=== PATIENT | male | born 1935 | race Caucasian/White ===

== ENCOUNTER 2017-05-02 22:45 | Observation (INO) | payer OTHER ==
[~2017-05-02] VITALS: Ht 167.6 cm; Wt 86.6 kg
[~2017-05-02 22:45] MED LIST: ASPIRIN EC325 M2 PO; ATIVAN1 M1 PO; ATORVASTATIN CA20 M1 PO; COLACE100 M1 PO; DILAUDID2 M1 PO; FISH OIL 1,2001 EACH PO; LOSARTAN POTAS100 M1 PO; MIRALAX17 G1 PO; MS CONTIN15 M3 PO; RANITIDINE HCL75 MG PO; ST. JOSEPH ASPI81 M1 PO; VERAPAMIL ER240 M1 PO; VITAMIN E1000 UNI1 PO
--- NOTE | 2017-05-02 23:04 | ED GI/GU/ABDOMINAL COMPLAINT ---
History of Present Illness General Chief Complaint: General Adult Stated Complaint: PT IS HAVING UPPER ABDOMINAL PAIN Source: patient, family, old records Exam Limitations: no limitations Vital Signs & Intake/Output Vital Signs & Intake/Output Vital Signs Date Time Temp Pulse Resp B/P B/P Pulse O2 O2 Flow FiO2 Mean Ox Delivery Rate 05/03 0059 96 Room Air 05/03 0036 99.2 74 20 159/78 98 Room Air 05/02 2313 98.8 79 18 164/84 97 Room Air ED Intake and Output 05/03 0000 05/02 1200 Intake Total Output Total Balance Patient 191 lb Weight Weight Reported by Patient Measurement Method Allergies Coded Allergies: acetaminophen (From TYLENOL) (IMPACTS LIVER 04/24/17) Reconcile Medications Aspirin (Ecotrin*) 325 MG TABLET.DR 1 TAB PO BID ANTICOAGULATION Atorvastatin Calcium 20 MG TABLET 1 TAB PO DAILY CHOLESTEROL (Reported) Docusate Sodium (Colace) 100 MG CAPSULE 1 CAP PO BID CONSITPATION DISCONTINUE USE IF YOU DEVELOP LOOSE STOOL OR DIARRHEA Fish Oil/Dha/Epa (Fish Oil 1,200 MG Fish Oil) 1,200 MG-144 MG-216 MG CAPSULE 1 TAB PO D SUPPLEMENT (Reported) Hydromorphone HCl (Dilaudid) 2 MG TABLET 1-2 TAB PO Q4-6 PRN PRN PAIN LORazepam (Ativan) 1 MG TAB 1 TAB PO BID PRN ANXIETY (Reported) Losartan Potassium 100 MG TABLET 1 TAB PO DAILY BP (Reported) Morphine Sulfate (Ms Contin) 15 MG TABLET.ER 1 TAB PO BID PRN PAIN Polyethylene Glycol 3350 (Miralax) 17 GRAM POWD.PACK 1 PAC PO DAILY CONSTIPATION dissolve in water, DISCONTINUE USE IF YOU DEVELOP LOOSE STOOL OR DIARRHEA Ranitidine HCl 75 MG TABLET 1 TAB PO DAILY REFLUX (Reported) Verapamil HCl (Verapamil ER) 240 MG TABLET.ER 1 TAB PO DAILY BP (Reported) Vitamin E Mixed (Vitamin E) 1,000 UNIT CAPSULE 1 TAB PO DAILY SUPPLEMENT ( Reported) Triage Nurses Notes Reviewed? yes HPI: Patient was awoken approximately 2 hours ago with a burning sensation in his epigastric area. There is no radiation. There are no aggravating or mitigating factors. He rates as moderate on the pain scale. Patient had hip surgery last week and saw his petroleum analyst, Dr. Soler, prior to the surgery and was told that everything was okay. Patient denies any shortness of breath. Patient has not had much of an appetite since the surgery but tonight had a craving for a chili dog so he ate 2 chili dogs. Patient then went to bed and was awoken with the above symptoms. Past History Travel History Traveled to [place] past 21 day No Medical History Any Pertinent Medical History? 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 No Review of Systems Review of Systems Constitutional: Reports: no symptoms. EENTM: Reports: no symptoms. Respiratory: Reports: no symptoms. Cardiovascular: Reports: no symptoms. GI: Reports: see HPI, abdominal pain. Genitourinary: Reports: no symptoms. Musculoskeletal: Reports: no symptoms. Skin: Reports: no symptoms. Neurological/Psychological: Reports: no symptoms. Hematologic/Endocrine: Reports: no symptoms. Immunologic/Allergic: Reports: no symptoms. All Other Systems: Reviewed and Negative Physical Exam Physical Exam General Appearance: well developed/nourished, alert, awake, anxious, mild distress Head: atraumatic, normal appearance Eyes: Bilateral: PERRL, EOMI. Ears, Nose, Throat, Mouth: hearing grossly normal, moist mucous membrane Neck: normal inspection, supple, full range of motion Respiratory: normal breath sounds, chest non-tender, no respiratory distress, lungs clear Cardiovascular: regular rate/rhythm, normal peripheral pulses Gastrointestinal: normal bowel sounds, soft, non-tender, no organomegaly Back: normal inspection, normal range of motion Extremities: normal range of motion Neurologic/Psych: no motor/sensory deficits, awake, alert, oriented x 3, normal mood/affect Skin: intact, normal color, warm/dry Core Measures ACS in differential dx? No Sepsis Present: No Sepsis Focused Exam Completed? No Progress Differential Diagnosis: AAA, AMI, biliary colic, colon cancer, cholecystitis, diverticulitis, gastritis, hepatitis, ischemic bowel, inflamm bowel dis, pancreatitis, peptic ulcer, PUD/GERD Plan of Care: Orders Procedure Date/time Status TROPONIN LEVEL 05/03 0154 Active EKG 05/03 0154 Active Telemetry/Press Tender Star Signal 05/02 2302 Active TROPONIN LEVEL 05/02 2302 Complete LIPASE 05/02 2302 Complete COMPREHENSIVE METABOLIC PANEL 05/02 2302 Complete CBC WITHOUT DIFFERENTIAL 05/02 2302 Complete AMYLASE 05/02 2302 Complete EKG 05/02 2249 Active Laboratory Tests 05/03/17 0220: Troponin I Pending 05/02/17 2325: Anion Gap 13, Estimated GFR > 60, BUN/Creatinine Ratio 16.4, Glucose 131 H, Calcium 9.2, Total Bilirubin 1.4 H, AST 52, ALT 56, Alkaline Phosphatase 69, Troponin I 0.04, Total Protein 6.5, Albumin 3.4 L, Globulin 3.1, Albumin/ Globulin Ratio 1.1, Amylase 50, Lipase 102, CBC w Diff NO MAN DIFF REQ, RBC 3.45 L, MCV 99.5 H, MCH 33.5 H, RDW 12.6, MPV 7.7, Gran % 74.2, Lymphocytes % 15.2 L, Monocytes % 9.7 H, Eosinophils % 0.5, Basophils % 0.4, Absolute Granulocytes 4.1, Absolute Lymphocytes 0.8 L, Absolute Monocytes 0.5, Absolute Eosinophils 0, Absolute Basophils 0, PUBS MCHC 33.6 Diagnostic Imaging: Viewed by Me: Radiology Read. Discussed w/RAD: Radiology Read. Radiology Impression: PATIENT: MONICA SHRESTHA PRESENT AGE: 81 PATIENT ACCOUNT NO: [id number] : 35 LOCATION: [facility] ORDERING PHYSICIAN: Beulah Davies MD SERVICE DATE: 05/03/17 EXAM TYPE: CAT - CT ABD & PELVIS W IV CONTRAST EXAMINATION: CT ABDOMEN AND PELVIS WITH CONTRAST CLINICAL INFORMATION: Right upper quadrant pain. COMPARISON: None available. TECHNIQUE: Multidetector volumetric imaging was performed of the abdomen and pelvis following IV administration of 95 mL of Optiray 320 intravenous contrast. Sagittal and coronal reformatted images were obtained on the technologist's workstation. FINDINGS: The lung bases are clear. The liver, spleen, adrenal glands, and pancreas are normal. The gallbladder is significantly distended and there are multiple gallstones, the largest measuring 0.8 cm in size. The kidneys exhibit symmetric nephrograms without evidence of hydronephrosis or nephrolithiasis. Small exophytic right renal cyst. Scattered colonic diverticulosis without acute diverticulitis. The large and small bowel are normal in caliber without evidence of mechanical obstruction. No focal inflammatory changes adjacent to the large or the small bowel. The appendix is normal. There is no free air and there is no intra-abdominal free fluid. No mesenteric or retroperitoneal adenopathy. Infrarenal abdominal aortic ectasia. The pelvic viscera are normal. No pelvic adenopathy. No free fluid within the pelvis. There are no acute osseous abnormalities. Degenerative changes throughout the thoracolumbar spine. Grade 1 degenerative anterolisthesis of L4 on L5. Small fat-containing inguinal hernias bilaterally. Bilateral total hip arthroplasties. IMPRESSION: - Cholelithiasis and significant gallbladder distention. No pericholecystic inflammatory changes. - Scattered colonic diverticulosis without acute diverticulitis. DICTATED BY: Dale Valencia MD DATE/TIME DICTATED:05/03/17209 PIPELINE INTEGRITY ENGINEER:DAYSI DATE/TIME TRANSCRIBED:05/03/17209 CONFIDENTIAL, DO NOT COPY WITHOUT APPROPRIATE AUTHORIZATION. <Electronically signed in Other Vendor System> SIGNED BY: Dale Valencia MD 05/03/17218 CXR Impression: PATIENT: MONICA SHRESTHA PRESENT AGE: 81 PATIENT ACCOUNT NO: [id number] : 35 LOCATION: [facility] ORDERING PHYSICIAN: Beulah Davies MD SERVICE DATE: 05/02/17 EXAM TYPE: RAD - XRY- PORTABLE CHEST XRAY EXAMINATION: XR PORTABLE CHEST CLINICAL INFORMATION: Chest pain COMPARISON: Chest x-ray 04/20/2017 TECHNIQUE: Portable frontal view of the chest was obtained. FINDINGS: Lungs are clear. No pulmonary vascular congestion. There is no pleural effusion. The heart size is normal. The cardiac and mediastinal contours are normal. There are calcifications of the thoracic aorta. There are multilevel degenerative changes of dorsal spine. IMPRESSION: Unremarkable examination. DICTATED BY: Jaime Boggs MD DATE/TIME DICTATED:2326 PIPELINE INTEGRITY ENGINEER:SERRANO DATE/TIME TRANSCRIBED:05/02/172326 CONFIDENTIAL, DO NOT COPY WITHOUT APPROPRIATE AUTHORIZATION. <Electronically signed in Other Vendor System> SIGNED BY: Jaime Boggs MD 05/02/172330 Initial ED EKG: NSR, nonspecific ST T wave chg Prior EKG: unchanged Rhythm Strip: normal sinus rhythm Comments: GI COCTAIL CHANGED THE PAIN FROM BURNING TO CRAMPY AND NOW THE PAIN IS IN THE RUQ. NO RELIEF AFTER IF MORPHONE PAIN DECREASED TO 3 OUT OF [address] AND LAB RESULTS DISCUSSED WITH PT. QUESTIONS HAVE BEEN ANSWERED. SURGERY PAGED. Departure Departure Disposition: STILL A PATIENT Condition: Stable Clinical Impression Primary Impression: Cholelithiasis Referrals: Burkett ,Agapito Castro (PCP/Family) Departure Forms: Customer Survey General Discharge Information Observation Note Spoke With: Alexa ENCINAS,Boogie Lucas Physician Advisor Notified: AFSANEH ENCINAS,BEULAH Mcfarlane Place Patient In: Non-ED OBS Care Area Rationale for Observation: My rational for observation is as follows [IV FLUIDS, NPO, PAIN CONTROL, LAP TITO].
--- NOTE | 2017-05-02 23:31 | RADIOLOGY REPORT ---
EXAMINATION: XR PORTABLE CHEST CLINICAL INFORMATION: Chest pain COMPARISON: Chest x-ray 04/20/2017 TECHNIQUE: Portable frontal view of the chest was obtained. FINDINGS: Lungs are clear. No pulmonary vascular congestion. There is no pleural effusion. The heart size is normal. The cardiac and mediastinal contours are normal. There are calcifications of the thoracic aorta. There are multilevel degenerative changes of dorsal spine. IMPRESSION: Unremarkable examination.
[2017-05-02 23:42] LABS: ABSOLUTE BASOPHIL COUNT 0 /CUMM (0.0-0.2); ABSOLUTE EOSINOPHIL COUNT 0 /CUMM (0.0-0.7); ABSOLUTE GRANULOCYTE CT 4.1 /CUMM (1.4-6.5); ABSOLUTE LYMPH COUNT 0.8 /CUMM (1.2-3.4); ABSOLUTE MONOCYTE COUNT 0.5 /CUMM (0.10-0.60); BASOPHIL % 0.4 % (0.0-2.0); EOSINOPHIL % 0.5 % (0-5); GRANULOCYTE % 74.2 % (42.2-75.2); HEMATOCRIT 34.3 % (42-52); MEAN CORPUSCULAR HGB 33.5 PG (27.0-31.0); MEAN CORPUSCULAR HGB CONC 33.6 G/DL (33.0-37.0); MEAN CORPUSCULAR VOLUME 99.5 FL (80.0-94.0); MEAN PLATELET VOLUME 7.7 FL (7.4-10.4); RBC DISTRIBUTION WIDTH 12.6 % (11.5-14.5); RED BLOOD CELL CT 3.45 /CUMM (4.70-6.10); WHITE BLOOD CELL COUNT 5.5 /CUMM (4.8-10.8)
[2017-05-02 23:49] LABS: PLATELET COUNT 238 /CUMM (130-400)
--- NOTE | 2017-05-03 02:19 | CT SCAN REPORT ---
EXAMINATION: CT ABDOMEN AND PELVIS WITH CONTRAST CLINICAL INFORMATION: Right upper quadrant pain. COMPARISON: None available. TECHNIQUE: Multidetector volumetric imaging was performed of the abdomen and pelvis following IV administration of 95 mL of Optiray 320 intravenous contrast. Sagittal and coronal reformatted images were obtained on the technologist's workstation. FINDINGS: The lung bases are clear. The liver, spleen, adrenal glands, and pancreas are normal. The gallbladder is significantly distended and there are multiple gallstones, the largest measuring 0.8 cm in size. The kidneys exhibit symmetric nephrograms without evidence of hydronephrosis or nephrolithiasis. Small exophytic right renal cyst. Scattered colonic diverticulosis without acute diverticulitis. The large and small bowel are normal in caliber without evidence of mechanical obstruction. No focal inflammatory changes adjacent to the large or the small bowel. The appendix is normal. There is no free air and there is no intra-abdominal free fluid. No mesenteric or retroperitoneal adenopathy. Infrarenal abdominal aortic ectasia. The pelvic viscera are normal. No pelvic adenopathy. No free fluid within the pelvis. There are no acute osseous abnormalities. Degenerative changes throughout the thoracolumbar spine. Grade 1 degenerative anterolisthesis of L4 on L5. Small fat-containing inguinal hernias bilaterally. Bilateral total hip arthroplasties. IMPRESSION: - Cholelithiasis and significant gallbladder distention. No pericholecystic inflammatory changes. - Scattered colonic diverticulosis without acute diverticulitis.
--- NOTE | 2017-05-03 03:14 | History & Physical Pre-Op ---
General Information and HPI MD Statement: I have seen and personally examined MONICA SHRESTHA and documented this H&P. The patient is a 81 year old M who presented with a patient stated chief complaint of ABDOMINAL PAIN. Source of Information: patient Exam Limitations: no limitations History of Present Illness: 81-year-old male with complaints of epigastric and right upper quadrant abdominal pain after eating 2 chili dogs this evening. Pain started a few hours later, it was 8 out of 10, nonradiating, burning epigastric sensation. It was severe enough to bring patient to the emergency department. He received pain medication here and then noted that the pain was localized to the right upper quadrant. He states he has a history of gallstones, previously passed a gallstone but states he was never recommended to have surgery. He has not had any significant right upper quadrant abdominal pain over the last several months but does state that his had loss of appetite without any significant weight loss. He has GERD as well. There is no radiating pain to the back, no nausea no vomiting no fever. Coincidentally, he is one week status post right total hip arthroplasty anterior approach and has been doing well postoperatively, recovering at home with home therapy and is on aspirin 325 mg by mouth twice a day for DVT prophylaxis. He has some swelling in his right leg and intermittent pain that is improving but otherwise he is recovering well. He saw his carton filler 2 weeks ago for cardiac clearance as he has a history of coronary artery disease with [place] [address] scan of the abdomen and pelvis shows enlarged gallbladder with gallstones and surgery was consulted for further management Allergies/Medications Allergies: Coded Allergies: acetaminophen (From TYLENOL) (IMPACTS LIVER 04/24/17) Home Med list Aspirin (Ecotrin*) 325 MG TABLET.DR 1 TAB PO BID ANTICOAGULATION Atorvastatin Calcium 20 MG TABLET 1 TAB PO DAILY CHOLESTEROL (Reported) Docusate Sodium (Colace) 100 MG CAPSULE 1 CAP PO BID CONSITPATION DISCONTINUE USE IF YOU DEVELOP LOOSE STOOL OR DIARRHEA Fish Oil/Dha/Epa (Fish Oil 1,200 MG Fish Oil) 1,200 MG-144 MG-216 MG CAPSULE 1 TAB PO D SUPPLEMENT (Reported) Hydromorphone HCl (Dilaudid) 2 MG TABLET 1-2 TAB PO Q4-6 PRN PRN PAIN LORazepam (Ativan) 1 MG TAB 1 TAB PO BID PRN ANXIETY (Reported) Losartan Potassium 100 MG TABLET 1 TAB PO DAILY BP (Reported) Morphine Sulfate (Ms Contin) 15 MG TABLET.ER 1 TAB PO BID PRN PAIN Polyethylene Glycol 3350 (Miralax) 17 GRAM POWD.PACK 1 PAC PO DAILY CONSTIPATION dissolve in water, DISCONTINUE USE IF YOU DEVELOP LOOSE STOOL OR DIARRHEA Ranitidine HCl 75 MG TABLET 1 TAB PO DAILY REFLUX (Reported) Verapamil HCl (Verapamil ER) 240 MG TABLET.ER 1 TAB PO DAILY BP (Reported) Vitamin E Mixed (Vitamin E) 1,000 UNIT CAPSULE 1 TAB PO DAILY SUPPLEMENT ( Reported) Past History Medical History EENT: cataracts Cardiovascular: hypertension, hyperlipidemia, [place] (TEN YEARS) HEART DIS Gastrointestinal: GERD Musculoskeletal: osteoarthritis Psychiatric: anxiety Influenza Vaccine: 01/20/17 Surgical History Pertinent Surgical History: non-contributory Past Family/Social History Psychosocial History ETOH Use: denies use (2-3 drinks per day), heavy use Illicit Drug Use: denies illicit drug use Functional Ability ADLs Independent: dressing, eating, toileting, bathing. Review of Systems Review of Systems Constitutional: Reports: no symptoms. EENTM: Reports: no symptoms. Cardiovascular: Reports: no symptoms. Respiratory: Reports: no symptoms. GI: Reports: see HPI. Genitourinary: Reports: no symptoms. Musculoskeletal: Reports: see HPI. Skin: Reports: no symptoms. Neurological/Psychological: Reports: no symptoms. Hematologic/Endocrine: Reports: no symptoms. Exam & Diagnostic Data Last 24 Hrs of Vital Signs/I&O Vital Signs Date Time Temp Pulse Resp B/P B/P Pulse O2 O2 Flow FiO2 Mean Ox Delivery Rate 05/03 0255 97.8 72 18 138/86 98 Room Air 05/03 0059 96 Room Air 05/03 0036 99.2 74 20 159/78 98 Room Air 05/02 2313 98.8 79 18 164/84 97 Room Air Intake & Output 05/03 0800 05/03 0000 05/02 1600 Intake Total 50 Output Total 125 Balance -75 Intake, Oral 50 Output, Urine 125 Patient 191 lb Weight Weight Reported by Patient Measurement Method Physical Exam: Well-developed well-nourished no apparent distress. HEENT: Atraumatic, extraocular motion intact Neck: Supple, no lymphadenopathy Heart: Regular rate and rhythm Respiratory: No respiratory distress clear to auscultation bilateral. Abdomen: Mild tenderness in the right upper quadrant, negative Enrique sign. Minimal abdominal distention. No lower abdominal tenderness. Extremities: RIGHT lower extremity hip dressing in place, Dressing clean dry and intact Incision without erythema Mild thigh swelling No signs of infection. No shortening or rotation Hip range of motion is limited and without unexpected pain Neurovascularly intact distally Bilateral calves are supple, nontender. +1 edema right lower extremity, no calf pain, no edema left lower extremity Neuro: Alert and oriented x3 Psych: Mood affect normal, normal memory normal judgment. Skin: Warm and dry, no rash on exposed skin Last 24 Hrs of Labs/Jordan: Laboratory Tests 05/03/17 0220: Troponin I 0.03 05/02/17 2325: Anion Gap 13, Estimated GFR > 60, BUN/Creatinine Ratio 16.4, Glucose 131 H, Calcium 9.2, Total Bilirubin 1.4 H, AST 52, ALT 56, Alkaline Phosphatase 69, Troponin I 0.04, Total Protein 6.5, Albumin 3.4 L, Globulin 3.1, Albumin/ Globulin Ratio 1.1, Amylase 50, Lipase 102, CBC w Diff NO MAN DIFF REQ, RBC 3.45 L, MCV 99.5 H, MCH 33.5 H, RDW 12.6, MPV 7.7, Gran % 74.2, Lymphocytes % 15.2 L, Monocytes % 9.7 H, Eosinophils % 0.5, Basophils % 0.4, Absolute Granulocytes 4.1, Absolute Lymphocytes 0.8 L, Absolute Monocytes 0.5, Absolute Eosinophils 0, Absolute Basophils 0, PUBS MCHC 33.6 Diagnostic Data EKG Results 80 BPM, NSR, Q WAVE INF, NS T WAVE ABNORMALITY INF, NO CHANGE FROM PREVIOUS Other Results PATIENT: MONICA SHRESTHA PRESENT AGE: 81 PATIENT ACCOUNT NO: [id number] : 35 LOCATION: [facility] ORDERING PHYSICIAN: Alvarez Davies MD SERVICE DATE: 05/03/17 EXAM TYPE: CAT - CT ABD & PELVIS W IV CONTRAST EXAMINATION: CT ABDOMEN AND PELVIS WITH CONTRAST CLINICAL INFORMATION: Right upper quadrant pain. COMPARISON: None available. TECHNIQUE: Multidetector volumetric imaging was performed of the abdomen and pelvis following IV administration of 95 mL of Optiray 320 intravenous contrast. Sagittal and coronal reformatted images were obtained on the technologist's workstation. FINDINGS: The lung bases are clear. The liver, spleen, adrenal glands, and pancreas are normal. The gallbladder is significantly distended and there are multiple gallstones, the largest measuring 0.8 cm in size. The kidneys exhibit symmetric nephrograms without evidence of hydronephrosis or nephrolithiasis. Small exophytic right renal cyst. Scattered colonic diverticulosis without acute diverticulitis. The large and small bowel are normal in caliber without evidence of mechanical obstruction. No focal inflammatory changes adjacent to the large or the small bowel. The appendix is normal. There is no free air and there is no intra-abdominal free fluid. No mesenteric or retroperitoneal adenopathy. Infrarenal abdominal aortic ectasia. The pelvic viscera are normal. No pelvic adenopathy. No free fluid within the pelvis. There are no acute osseous abnormalities. Degenerative changes throughout the thoracolumbar spine. Grade 1 degenerative anterolisthesis of L4 on L5. Small fat-containing inguinal hernias bilaterally. Bilateral total hip arthroplasties. IMPRESSION: - Cholelithiasis and significant gallbladder distention. No pericholecystic inflammatory changes. - Scattered colonic diverticulosis without acute diverticulitis. DICTATED BY: Dale Valencia MD DATE/TIME DICTATED:05/03/17209 MOBILITY ENGINEER:DAYSI DATE/TIME TRANSCRIBED:05/03/17209 CONFIDENTIAL, DO NOT COPY WITHOUT APPROPRIATE AUTHORIZATION. <Electronically signed in Other Vendor System> SIGNED BY: Dale Valencia MD 05/03/17218 Assessment/Plan Assessment/Plan: 81-year-old male with symptomatic gallstones and elevated bilirubin 1 week postop after right total hip replacement We will need to hold his anticoagulation in anticipation for surgery in the very near future. We will repeat his LFTs in the morning monitoring for elevated bilirubin, if he continues to rise, he will need an ERCP. If not, he will likely need a semiurgent laparoscopic cholecystectomy either later today or tomorrow. Nothing by mouth, IV fluids, pain medication as needed, we will place him in [address] Liu As Ranked By This Provider Problem List: 1. Acute cholecystitis 2. Hyperbilirubinemia
--- NOTE | 2017-05-03 03:14 | Admission Core Measures ---
Acute Coronary Syndrome (CM) ACS Core Measures Acute Coronary Syndrome Diagnosis No Congestive Heart Failure (NEW) CHF Core Measures Congestive Heart Failure Diagnosis No Cerebrovascular Accident (NEW) CVA Core Measures CVA/TIA Diagnosis No Venous Thromboembolism VTE Core Caio (View Protocol) VTE Risk Factors Age>40 No Mechanical VTE Prophylaxis d/t N/A MechProphylax Ordered No VTE Pharm Prophylaxis d/t Surgical Contraindication Problem List As ranked by this Provider includes Assessment & Plan 1. Acute cholecystitis 2. Hyperbilirubinemia HOME MEDS Home Med List Aspirin (Ecotrin*) 325 MG TABLET.DR 1 TAB PO BID ANTICOAGULATION Atorvastatin Calcium 20 MG TABLET 1 TAB PO DAILY CHOLESTEROL (Reported) Docusate Sodium (Colace) 100 MG CAPSULE 1 CAP PO BID CONSITPATION Fish Oil/Dha/Epa (Fish Oil 1,200 MG Fish Oil) 1,200 MG-144 MG-216 MG CAPSULE 1 TAB PO D SUPPLEMENT (Reported) Hydromorphone HCl (Dilaudid) 2 MG TABLET 1-2 TAB PO Q4-6 PRN PRN PAIN LORazepam (Ativan) 1 MG TAB 1 TAB PO BID PRN ANXIETY (Reported) Losartan Potassium 100 MG TABLET 1 TAB PO DAILY BP (Reported) Morphine Sulfate (Ms Contin) 15 MG TABLET.ER 1 TAB PO BID PRN PAIN Polyethylene Glycol 3350 (Miralax) 17 GRAM POWD.PACK 1 PAC PO DAILY CONSTIPATION Ranitidine HCl 75 MG TABLET 1 TAB PO DAILY REFLUX (Reported) Verapamil HCl (Verapamil ER) 240 MG TABLET.ER 1 TAB PO DAILY BP (Reported) Vitamin E Mixed (Vitamin E) 1,000 UNIT CAPSULE 1 TAB PO DAILY SUPPLEMENT ( Reported) Discontinued Medications Aspirin (Conger Aspirin) 81 MG TABLET. 1 TAB PO DAILY HEARTHEALTH ( Reported) Discontinued reason: Changed Dose
[2017-05-03 07:54] VITALS: BP 150/76
[2017-05-03 08:22] LABS: PT 13.9 SEC (9.4-12.5)
--- NOTE | 2017-05-03 08:51 | PN- Student ---
Subjective Subjective: No acute events overnight. Pt reports constant non-radiating 4/10 pain in RUQ. Reports he had nausea after receiving pain medication, no vomiting. Denies fevers, chills, dysuria, SOB or CP. requesting a walker so he can get up and ambulate. Objective Objective: General: awake, alert, oriented. In no acute distress. Cardiac: regular rate and rhythm. Normal S1 S2 Respiratory: Non-labored breathing. Lungs CTA b/l. Good inspiratory effort Abdomen: Soft, obese, non-distended. Normoactive bowel sounds. Negative dill sign. Min tenderness to deep palpation in RUQ, otherwise abdomen non-tender to palpation. Extr: RLE: dressing over incision is c/d/i. Ecchymosis is noted along lateral thigh. Mild edema noted along RLE including right foot. 2+ DP pulse palpated. Extremity is warm, dry and non-tender. Motor and sensation are grossly intact. Pt complains of minimal calf tenderness to palpation. No erythema or palpable cords. LLE: Calf non-tender. 2+ DP pulse palpated. Motor and sensation grossly intact. Results Results: Laboratory Tests 05/03/17 0720: Total Bilirubin Pending, Direct Bilirubin Pending, AST Pending, ALT Pending, Alkaline Phosphatase Pending, Total Protein Pending, Albumin Pending, PT 13.9 H , INR 1.33 H 05/03/17 0220: Troponin I 0.03 05/02/17 2325: Anion Gap 13, Estimated GFR > 60, BUN/Creatinine Ratio 16.4, Glucose 131 H, Calcium 9.2, Total Bilirubin 1.4 H, AST 52, ALT 56, Alkaline Phosphatase 69, Troponin I 0.04, Total Protein 6.5, Albumin 3.4 L, Globulin 3.1, Albumin/ Globulin Ratio 1.1, Amylase 50, Lipase 102, CBC w Diff NO MAN DIFF REQ, RBC 3.45 L, MCV 99.5 H, MCH 33.5 H, RDW 12.6, MPV 7.7, Gran % 74.2, Lymphocytes % 15.2 L, Monocytes % 9.7 H, Eosinophils % 0.5, Basophils % 0.4, Absolute Granulocytes 4.1, Absolute Lymphocytes 0.8 L, Absolute Monocytes 0.5, Absolute Eosinophils 0, Absolute Basophils 0, PUBS MCHC 33.6 Vital Signs Date Time Temp Pulse Resp B/P B/P Pulse O2 O2 Flow FiO2 Mean Ox Delivery Rate 05/03 0754 98.5 78 18 150/76 95 05/03 0255 97.8 72 18 138/86 98 Room Air 05/03 0059 96 Room Air 05/03 0036 99.2 74 20 159/78 98 Room Air 05/02 2313 98.8 79 18 164/84 97 Room Air Intake & Output 05/03 1600 05/03 0800 05/03 0000 Intake Total 50 Output Total 125 Balance -75 Intake, Oral 50 Output, Urine 125 Patient 191 lb Weight Weight Reported by Patient Measurement Method Assessment/Plan Assessment: 81-year-old male with symptomatic gallstones and elevated bilirubin 1 week postop after right total hip replacement. Pt is currently hemo-dynamically stable with 4/10 RUQ pain. Plan: awaiting repeat LFTs this am hold asa NPO IV pain medications home meds with a sip of water will d/w preceptor Melva CENTENO
[2017-05-03 14:57] VITALS: BP 118/60
--- NOTE | 2017-05-03 16:29 | History & Physical Pre-Op ---
See Addendum General Information and HPI Source of Information: patient Exam Limitations: no limitations History of Present Illness: CC: abdominal pain HPI: 81-year-old xsmoker nondiabetic with heart history cleared recently by cardiology for a hip replacement a week ago. Actually he's had a poor appetite for a few weeks but it was better yesterday and he had to chili dogs followed by constant right upper quadrant pain only relieved with analgesics doesn't radiate. He knows he has gallstones once he had imaging several years ago for elevated liver function tests he was told he had gallstones but didn't really ever bother him until yesterday. This pain is not worse with activity no n/v diarrhea no fevers no particular darkening of urine (ie iced tea) or lightening / loose stools (mast), he's not sure his mother may have had a gallbladder problem too. Otherwise no changes bowel habits, weight or appetite. I've reviewed the [facility]. No history of GERD, PUD, bleeding problems, or issues with anesthesia. Not on Coumadin since recent hip surgery only aspirin. Family history positive for heart disease or no diabetes past surgical history no prior abdominal surgery. Allergies/Medications Allergies: Coded Allergies: acetaminophen (From TYLENOL) (IMPACTS LIVER 04/24/17) Home Med list Aspirin (Ecotrin*) 325 MG TABLET.DR 1 TAB PO BID ANTICOAGULATION Atorvastatin Calcium 20 MG TABLET 1 TAB PO DAILY CHOLESTEROL (Reported) Docusate Sodium (Colace) 100 MG CAPSULE 1 CAP PO BID CONSITPATION DISCONTINUE USE IF YOU DEVELOP LOOSE STOOL OR DIARRHEA Fish Oil/Dha/Epa (Fish Oil 1,200 MG Fish Oil) 1,200 MG-144 MG-216 MG CAPSULE 1 TAB PO D SUPPLEMENT (Reported) Hydromorphone HCl (Dilaudid) 2 MG TABLET 1-2 TAB PO Q4-6 PRN PRN PAIN LORazepam (Ativan) 1 MG TAB 1 TAB PO BID PRN ANXIETY (Reported) Losartan Potassium 100 MG TABLET 1 TAB PO DAILY BP (Reported) Morphine Sulfate (Ms Contin) 15 MG TABLET.ER 1 TAB PO BID PRN PAIN Polyethylene Glycol 3350 (Miralax) 17 GRAM POWD.PACK 1 PAC PO DAILY CONSTIPATION dissolve in water, DISCONTINUE USE IF YOU DEVELOP LOOSE STOOL OR DIARRHEA Ranitidine HCl 75 MG TABLET 1 TAB PO DAILY REFLUX (Reported) Verapamil HCl (Verapamil ER) 240 MG TABLET.ER 1 TAB PO DAILY BP (Reported) Vitamin E Mixed (Vitamin E) 1,000 UNIT CAPSULE 1 TAB PO DAILY SUPPLEMENT ( Reported) Past History Medical History Blood Transfusion Hx: No Neurological: NONE EENT: cataracts Cardiovascular: hypertension, hyperlipidemia, CT (TEN YEARS) HEART DIS Respiratory: NONE Gastrointestinal: GERD Hepatic: cholelithiasis, ENLARGED LIVER Renal: NONE Musculoskeletal: fracture, osteoarthritis Psychiatric: anxiety Endocrine: NONE Blood Disorders: NONE Cancer(s): NONE REGULATOR TESTER/Reproductive: NONE History of MRSA: No History of VRE: No History of CDIFF: No Isolation History: Standard Influenza Vaccine: 01/20/17 Surgical History Pertinent Surgical History: non-contributory Past Family/Social History Psychosocial History Smoking Status: Former Smoker ETOH Use: denies use (2-3 drinks per day), heavy use Illicit Drug Use: denies illicit drug use Functional Ability ADLs Independent: dressing, eating, toileting, bathing. Review of Systems Review of Systems: Constitutional: No fever, sweats or weight loss ENMT: No sore throat Cardiovascular: No chest pain, palpitations or leg swelling Respiratory: No shortness of breath, cough, or sputum or dyspnea on exertion GI: No GERD or bleeding per rectum : No dysuria or hematuria Musculoskeletal: No new muscle weakness, bone or joint pain Skin / Breast: No jaundice, rashes or itching Psychiatric: No history of drug or alcohol abuse no depression or anxiety Hematologic / lymphatic system: No problems with excessive bleeding, bruising, or blood clots Exam & Diagnostic Data Last 24 Hrs of Vital Signs/I&O I reviewed Vital Signs Date Time Temp Pulse Resp B/P B/P Pulse O2 O2 Flow FiO2 Mean Ox Delivery Rate 05/03 1457 98.2 68 20 118/60 93 Room Air 05/03 0924 78 150/76 05/03 0924 78 150/76 05/03 0754 98.5 78 18 150/76 95 05/03 0255 97.8 72 18 138/86 98 Room Air 05/03 0059 96 Room Air 05/03 0036 99.2 74 20 159/78 98 Room Air 05/02 2313 98.8 79 18 164/84 97 Room Air I reviewed Intake & Output 05/03 1600 05/03 0800 05/03 0000 Intake Total 50 Output Total 550 475 Balance -550 -425 Intake, IV 0 Intake, Oral 50 Number 0 Bowel Movements Output, Urine 550 475 Patient 191 lb 191 lb Weight Weight Reported by Patient Measurement Method Physical Exam: Constitutional: pleasant, no acute distress, conversant Eyes: sclera anicteric ENMT: ears and nose atraumatic, moist mucous membranes, good dentition, no lip lesions Neck: Supple, trachea is midline, no cervical or supraclavicular adenopathy and no palpable thyromegaly Cardiovascular: S1, S2, no murmurs, no peripheral edema Respiratory: clear to auscultation with normal respiratory effort and no intercostal retractions GI: abdomen soft, mild right upper quadrant tenderness no rebound or guarding, nondistended, no palpable hepatosplenomegaly Extremities / lymphatics: symmetrically warm, free range of motion no peripheral edema, no cervical, supraclavicular, axillary, or inguinal adenopathy Musculoskeletal: Did not evaluate gait and station, no digital cyanosis, good muscle strength and tone no atrophy, motor grossly 5 out of 5 throughout Skin: no jaundice, no rashes warm, nondiaphoretic, no areas of erythema or induration Psychiatric: mood and affect are appropriate and alert and oriented to person place and time Last 24 Hrs of Labs/Jrodan: I reviewed Laboratory Tests 05/03/17 0720: Total Bilirubin 1.1, Direct Bilirubin 0.3, AST 45, ALT 52, Alkaline Phosphatase 65, Total Protein 6.1 L, Albumin 3.3 L, PT 13.9 H, INR 1.33 H 05/03/17 0220: Troponin I 0.03 05/02/17 2325: Anion Gap 13, Estimated GFR > 60, BUN/Creatinine Ratio 16.4, Glucose 131 H, Calcium 9.2, Total Bilirubin 1.4 H, AST 52, ALT 56, Alkaline Phosphatase 69, Troponin I 0.04, Total Protein 6.5, Albumin 3.4 L, Globulin 3.1, Albumin/ Globulin Ratio 1.1, Amylase 50, Lipase 102, CBC w Diff NO MAN DIFF REQ, RBC 3.45 L, MCV 99.5 H, MCH 33.5 H, RDW 12.6, MPV 7.7, Gran % 74.2, Lymphocytes % 15.2 L, Monocytes % 9.7 H, Eosinophils % 0.5, Basophils % 0.4, Absolute Granulocytes 4.1, Absolute Lymphocytes 0.8 L, Absolute Monocytes 0.5, Absolute Eosinophils 0, Absolute Basophils 0, PUBS MCHC 33.6 Diagnostic Data EKG Results 80 BPM, NSR, Q WAVE INF, NS T WAVE ABNORMALITY INF, NO CHANGE FROM PREVIOUS Other Results PATIENT: MONICA SHRESTHA PRESENT AGE: 81 PATIENT ACCOUNT NO: [id number] : 35 LOCATION: [facility] ORDERING PHYSICIAN: Alvarez Davies MD SERVICE DATE: 05/03/17 EXAM TYPE: CAT - CT ABD & PELVIS W IV CONTRAST EXAMINATION: CT ABDOMEN AND PELVIS WITH CONTRAST CLINICAL INFORMATION: Right upper quadrant pain. COMPARISON: None available. TECHNIQUE: Multidetector volumetric imaging was performed of the abdomen and pelvis following IV administration of 95 mL of Optiray 320 intravenous contrast. Sagittal and coronal reformatted images were obtained on the technologist's workstation. FINDINGS: The lung bases are clear. The liver, spleen, adrenal glands, and pancreas are normal. The gallbladder is significantly distended and there are multiple gallstones, the largest measuring 0.8 cm in size. The kidneys exhibit symmetric nephrograms without evidence of hydronephrosis or nephrolithiasis. Small exophytic right renal cyst. Scattered colonic diverticulosis without acute diverticulitis. The large and small bowel are normal in caliber without evidence of mechanical obstruction. No focal inflammatory changes adjacent to the large or the small bowel. The appendix is normal. There is no free air and there is no intra-abdominal free fluid. No mesenteric or retroperitoneal adenopathy. Infrarenal abdominal aortic ectasia. The pelvic viscera are normal. No pelvic adenopathy. No free fluid within the pelvis. There are no acute osseous abnormalities. Degenerative changes throughout the thoracolumbar spine. Grade 1 degenerative anterolisthesis of L4 on L5. Small fat-containing inguinal hernias bilaterally. Bilateral total hip arthroplasties. IMPRESSION: - Cholelithiasis and significant gallbladder distention. No pericholecystic inflammatory changes. - Scattered colonic diverticulosis without acute diverticulitis. DICTATED BY: Dale Valencia MD DATE/TIME DICTATED:05/03/17209 SUBSTANCE ABUSE COUNSELOR:DAYSI DATE/TIME TRANSCRIBED:05/03/17209 CONFIDENTIAL, DO NOT COPY WITHOUT APPROPRIATE AUTHORIZATION. <Electronically signed in Other Vendor System> SIGNED BY: Erik ENCINASDale 05/03/17 0219 Assessment/Plan Assessment/Plan: Studies I reviewed the ultrasound from 03/15/[address] scan from 04/05/[address] scan on PACS myself , earlier you can see to calcified gallstones are present on the current imaging, was a little dilated no definite pedicle cystic fluid My impression is symptomatic gallstones. The story is typical. The current standard of care is removal of the gallbladder laparoscopically, preferably not emergently. Once they become symptomatic, gallstones can lead to complications such as cholecystitis, pancreatitis and cholangitis and rarely others, her story does not have hints of this and he might have acute cholecystitis despite the imaging, (the constant pain is concerning for). More workup is not needed but we will get a preoperative labs including LFTs. I explained the nature and possibility of retained stones, and rarely, persistent postoperative diarrhea. I ashanti a diagram illustrating how the stones cause problems and how the anatomy and inflammation can make the surgery more difficult, sometimes requiring an open procedure, and rarely to repair a bile duct injury leading to significant morbidity and even mortality. This in our practice is exceedingly rare, but other more common risks were also discussed such as infection, injury to other surrounding structures such as bowel and blood vessels. We also discussed the potential risks, benefits and alternatives to the procedure and surgery in general, issues that included but were not limited to, anesthetic risks hemorrhage requiring transfusion, the risk of transfusion itself, infection, heart attack, stroke, . Also discussed the effects of smoking history on healing and general anesthesia. As Ranked By This Provider Problem List: 1. Acute cholecystitis Copies To: Alexa ENCINAS,Boogie Lucas Attending MD Review Statement Attending Statement Attending MD Statement: examined this patient
--- NOTE | 2017-05-03 19:46 | Operative Report ---
Operative/Inv Procedure Report Surgery Date: 05/03/17 Name of Procedure: LAP CHOLY Pre-Operative Diagnosis: acute cholecystitis Post-Operative Diagnosis: same, gangrenous Estimated Blood Loss: less than 50ml Surgeon/Fellmongering Machine Operator: Alexa ENCINAS,Boogie PARK Anesthesia: general endotracheal tube Operative/Procedure Note Note: Findings: gangrenous cholecystitis, oozed more th us Patient was positioned supine. After successful induction of general anesthesia, the patient's abdomen was clipped, prepped and draped in the usual sterile fashion. Local anesthetic was injected at the top of the umbilicus and then a curved horizontal incision little over a centimeter was made there with a 15 blade and then deepened to the midline fascia which was incised vertically a little over a centimeter. Both sides were secured with 0 Vicryl stay sutures and then the thin peritoneal layer was entered, 10 mm Cortez trocar inserted obliquely to the right, and the gas was turned on to 15 mm. After insufflation and repositioning to reverse Trendelenburg, 3 more dissecting 5 mm trochars were placed in the right subcostal area, first lateral, then mid-subcostal, then subxiphoid. The gallbladder fundus was grasped from the lateral port and retracted up over the edge of the liver and then we dissected out the area of the triangle of Calot while retracting the infundibulum caudally / laterally. First the cystic duct was identified, isolated at the neck, clipped 3 times, divided after the second clip and then in similar fashion the cystic artery was identified medially, dissected and divided. Then the gallbladder was from the liver bed using cautery then lowered into an Endobag and removed through the umbilical incision. The instruments and then the trochars were removed letting the gas escape. The fascial incision was closed with a figure 8 Vicryl then all 4 skin incisions were closed with interrupted subcuticular 4-0 Monocryl, followed by Mastisol Steri-Strips and Bandaids. Estimated blood loss was minimal, lap and sponge counts were correct, wound expectancy was clean- contaminated, IV fluids crystalloid, complications none, patient tolerated the procedure well and was returned to the recovery room in satisfactory condition.
[2017-05-03 22:29] VITALS: BP 130/74
[2017-05-04 07:31] VITALS: BP 142/78
--- NOTE | 2017-05-04 09:43 | PN- General Surgery ---
Subjective Subjective: Patient reports feeling well. He denies any abdomial pain, n/v/f/c. States he has not eaten or ambulated since surgery. Offers no complaints. Objective Vital Signs and I&Os Vital Signs Date Time Temp Pulse Resp B/P B/P Pulse O2 O2 Flow FiO2 Mean Ox Delivery Rate 05/04 09 74 130/72 05/04 09 74 130/72 05/04 0731 97.8 66 18 142/78 93 Room Air 05/03 2229 97.8 69 18 130/74 94 Room Air 05/03 1457 98.2 68 20 118/60 93 Room Air Intake & Output 05/04 1600 05/04 0800 05/04 0000 05/03 1600 05/03 0800 05/03 0000 Intake Total 840 390 50 Output Total 400 500 550 475 Balance 440 -110 -550 -425 Intake, IV 600 150 0 Intake, Oral 240 240 50 Number 0 Bowel Movements Output, Urine 400 500 550 475 Patient 191 lb 191 lb Weight Weight Reported by Patient Measurement Method Physical Exam: General: Resting comfortably awake an alert in NAD Cardiac: S1S2 noted, RRR Lungs: Good air entry, CTAB Abdomen: Soft, obese, nondisteded with normactive bowel sounds, 4 dressings c/d/ i. Nontender to palpation, no rebound or guarding noted. Ext: R hip dressing c/d/i. Alps in place, no edema or calf tenderness B/L Current Medications: Current Medications Sig/Osvaldo Start time Last Medication Dose Route Stop Time Status Admin Acetaminophen 650 MG Q6P PRN 05/03 2100 AC PO Acetaminophen 650 MG Q6P PRN 05/03 0330 DC PO Cefazolin Sodium 2 GM IQ8 05/04 0000 DC 05/04 N/A 1 UNIT IV 05/04 0829 0915 Dextrose/Sodium 1,000 ML .[id number] 05/04 0610 AC 05/04 Chloride IV 0503 Dextrose/Sodium 1,000 ML .[id number] 05/03 0330 DC 05/03 Chloride IV 05/04 0609 2113 Famotidine 20 MG DAILY 05/04 1000 AC 05/04 PO 0922 Famotidine 20 MG DAILY 05/03 1000 DC 05/03 PO 0924 Fentanyl Citrate 250 MCG .STK-MED ONE 05/03 1702 DC IM 05/03 170 Hydromorphone HCl 2 MG Q4P PRN 05/03 2100 AC PO Hydromorphone HCl 4 MG Q4P PRN 05/03 2100 AC PO Hydromorphone HCl 0.6 MG Q2-3 HRS NEEDED.. 05/03 2100 AC IV Hydromorphone HCl 2 MG Q4P PRN 05/03 0345 DC 05/03 PO 0507 Hydromorphone HCl 4 MG Q4P PRN 05/03 0345 DC 05/03 PO 0925 Hydromorphone HCl 0.6 MG Q2-3 HRS NEEDED.. 05/03 0345 DC 05/03 IV 0715 Lorazepam 1 MG BID PRN 05/03 2100 AC PO Lorazepam 1 MG BID PRN 05/03 0345 DC PO Losartan Potassium 100 MG DAILY 05/04 1000 AC 05/04 PO 0922 Losartan Potassium 100 MG DAILY 05/03 1000 DC 05/03 PO 0924 Ondansetron HCl 4 MG Q6P PRN 05/03 2100 AC IV Ondansetron HCl 4 MG Q6P PRN 05/03 0330 DC IV Promethazine HCl 12.5 MG Q6P PRN 05/03 2100 AC IV 05/10 0329 Promethazine HCl 12.5 MG Q6P PRN 05/03 0330 DC IV 05/10 0329 Verapamil HCl 240 MG DAILY 05/04 1000 AC 05/04 PO 0922 Verapamil HCl 240 MG DAILY 05/03 1000 DC 05/03 PO 0924 Assessment/Plan Assessment/Plan This is an 81 year-old male s/p R THR on 04/26/17 who is POD 1 s/p lap candida secondary to gangreous cholecystitis who is recovering well Cont postop abx - ancef x1 ? home abx given recent hip replacemnt Advance reg diet as tolerated Cont pain regimen Cont daily dry dressing changes for right hip Home meds on board DVT ppx - asa 325 mg bid OOB ambulating with RW as needed Cont obs status D/c planning later today Will d/w Dr. Liu Core Measures Venous Thromboembolism VTE Risk Factors Age>40 No Mechanical VTE Prophylaxis d/t N/A MechProphylax Ordered No VTE Pharm Prophylaxis d/t Surgical Contraindication
[2017-05-04 09:50] LABS: ABSOLUTE BASOPHIL COUNT 0 /CUMM (0.0-0.2); ABSOLUTE EOSINOPHIL COUNT 0 /CUMM (0.0-0.7); ABSOLUTE GRANULOCYTE CT 4.9 /CUMM (1.4-6.5); ABSOLUTE LYMPH COUNT 0.3 /CUMM (1.2-3.4); ABSOLUTE MONOCYTE COUNT 0 /CUMM (0.10-0.60); BASOPHIL % 0 % (0.0-2.0); EOSINOPHIL % 0 % (0-5); HEMATOCRIT 31.4 % (42-52); MEAN CORPUSCULAR HGB 34.3 PG (27.0-31.0); MEAN CORPUSCULAR HGB CONC 34.5 G/DL (33.0-37.0); MEAN CORPUSCULAR VOLUME 99.3 FL (80.0-94.0); PLATELET COUNT 192 /CUMM (130-400); RBC DISTRIBUTION WIDTH 12.8 % (11.5-14.5); RED BLOOD CELL CT 3.16 /CUMM (4.70-6.10); WHITE BLOOD CELL COUNT 5.2 /CUMM (4.8-10.8)
[2017-05-04 11:47] LABS: GRANULOCYTE % 93.2 % (42.2-75.2)
--- NOTE | 2017-05-04 12:44 | Patient Discharge Instructions ---
Discharge Instructions General Discharge Information You were seen/treated for: Acute cholecystitis You had these procedures: Laparoscopic cholecystectomy on 05/03/17 Watch for these problems: Increased abdominal pain, nausea, vomiting, fever, chills, redness, swelling or drainage from your incisions Do not soak the wound: Yes No bath, but you may shower: Yes Other wound care: Keep incisions clean an dry May remove band-aids in 24 hours May apply dry dressing as needed Special Instructions: Take already prescribed Dilaudid for pain control as needed Take Colace while taking Dilaudid, discontinue taking Colace if you develop diarrhea Refer to previous discharge instructions regarding hip replacement care Diet Continue normal diet: Yes Activity Full Activity/No Limits: Yes Pounds, do NOT lift more than: 10 Activity Limited to: Weight bear as tolerated Other activity limits: Use rolling walker as needed No strenous activity or heavy lifting Acute Coronary Syndrome Inclusion Criteria At DC or during hospital stay patient has or had the following: ACS DIAGNOSIS No Discharge Core Measures Meds if any: Prescribed or Continued at Discharge Meds if any: NOT Prescribed or Continued at Discharge Congestive Heart Failure Inclusion Criteria At DC or during hospital stay patient has or had the following: CHF DIAGNOSIS No Discharge Core Measures Meds if any: Prescribed or Continued at Discharge Meds if any: NOT Prescribed or Continued at Discharge Cerebrovascular accident Inclusion Criteria At DC or during hospital stay patient has or had the following: CVA/TIA Diagnosis No Discharge Core Measures Meds if any: Prescribed or Continued at Discharge Meds if any: NOT Prescribed or Continued at Discharge Venous thromboembolism Inclusion Criteria VTE Diagnosis No VTE Type NONE VTE Confirmed by (Test) NONE Discharge Core Measures - Per Current guidelines, there needs to be overlap - treatment for the first 5 days of Warfarin therapy. - If discharged on Warfarin prior to 5 days of - overlap therapy, the patient will need to be - assessed for post discharge needs including - *Post discharge parental anticoagulation - *Warfarin and/or parental anticoagulation education - *Follow up date to check INR post discharge At least 5 days overlap therapy as Inpatient No Meds if any: Prescribed or Continued at Discharge Note: Overlap Therapy is Warfarin and Anticoagulant Meds if any: NOT Prescribed or Continued at Discharge
[2017-05-04] MEDS ORDERED: AUGMENTIN 875-1 EACH PO (12:46)
[2017-05-04 14:12] VITALS: BP 110/80
== END 2017-05-04 14:44 | disposition home health service (06) ==
LOC: ERH 22:45 → ERHI 05-03 02:35 → 2NB 05-03 02:35 → ENRESERV 05-03 03:45 → 2NB 05-03 03:58 → ENTRNSPT 05-03 20:38 → CMPTRNSPT 05-03 20:57 → ENPENDDIS 05-04 12:49 → ENTRNSPT 05-04 14:22 → EDTRNSPTSTS 05-04 14:27 → EDTRNSPT 05-04 14:27 → 2NB 05-04 14:44 → CMPTRNSPT 05-04 15:04
PROVIDERS: Emergency Medicine; Physician Assistant; Physician Assistant Surgical
DX: K80.00 Calculus of gallbladder with acute cholecystitis without obstruction (principal); I25.10 Atherosclerotic heart disease of native coronary artery without angina pectoris; I10 Essential (primary) hypertension; R10.11 Right upper quadrant pain; K21.9 Gastro-esophageal reflux disease without esophagitis; I25.2 Old myocardial infarction; Z79.82 Long term (current) use of aspirin; Z98.890 Other specified postprocedural states
CPT/HCPCS: 36415; 74177; 82436; 88304; 93005; 93010; 96374; 96375; 96376; C9399; G0378; J0690; J2550; J3490; J7042